=== PATIENT | female | born 1940 | race Caucasian/White ===

== ENCOUNTER 2022-10-20 22:08 | Inpatient (IN) | payer MEDICARE, OTHER, SELFPAY ==
--- NOTE | 2022-10-20 22:16 | W.ED.AMS ---
Documented by User: TAHMINA Elias 10/21/22 02:59 HPI - Altered Mental Status General: Chief Complaint: Altered Mental Status Stated Complaint: Alzheimer's Time Seen by Provider: 10/20/22 22:15 History of Present Illness: Patient is an 82-year-old female comes to the ED via EMS with Alzheimer's. Patient is in no distress and denies any symptoms at this time. Patient is a poor historian. She knows that she has a and lives with him. Patient does not remember if she has any kids or where she lives. The rest of the history below was provided by EMS. Patient lives at home with her and her takes care of her. The police just arrested and took him into custody. Patient cannot be left at home alone because she cannot take care of herself. The police hotline patient and they told police to bring patient here to the ED. police tried to get a hold of family that live in [place] and they are estranged from them and will not help. Review of Systems Const: Denies: fever(s), chills or fatigue Eyes: Denies: change in vision or eye discomfort ENMT: Denies: throat pain, odynophagia, nasal discharge or nasal congestion Card: Denies: chest pain, palpitations, edema, swelling of feet/ankles, dyspnea on exertion or orthopnea Resp: Denies: dyspnea, productive cough or non-productive cough GI: Denies: abdominal pain, nausea, vomiting, diarrhea, constipation or hematochezia : Denies: flank pain, dysuria or hematuria Musc: Denies: neck pain, back pain or extremity swelling Skin/Breast: Denies: rash or new lesions Neuro: Reports: other (Alzheimer's dementia); Denies: headache(s), numbness in extremities or weakness in extremities PFS ED PFSH: Medical History Alzheimers disease Unknown family medical history Physical Exam Const: COMMON NORMALS: no acute distress and alert EXAM LIMITATIONS: altered mental status (Alzheimer's dementia) ORIENTATION/CONSCIOUSNESS: Yes oriented to person; not oriented to place and not oriented to time HENMT: HEAD & SCALP: normal to inspection Eye: GENERAL EYE: appearance normal, both eyes and all related structures Resp: COMMON NORMALS: normal respiratory effort and clear to auscultation bilaterally AUSCULTATION: clear to auscultation bilaterally Cardio: COMMON NORMALS: regular rate, S1 normal heart sound present, S2 normal heart sound present and Peripheral pulses 2+ throughout RATE: regular rate HEART SOUNDS: S1 normal heart sound present and S2 normal heart sound present PERIPHERAL PULSES: Peripheral pulses 2+ throughout GI: COMMON NORMALS: Normal to inspection, nondistended, normoactive bowel sounds present and non-tender : OTHER: Patient does smell like urine. Extremity: COMMON NORMALS: normal to inspection Neuro: SENSORIUM/ORIENTATION: Yes alert, Yes oriented to person, No oriented to place, No oriented to time and Yes Orientation impaired (Patient is oriented to person but not place or time.) OTHER: Patient was unable to answer question of where she has had currently and where she lives. She does not know how long she has been to her and does not know if she has had any kids. Skin: GENERAL SKIN EXAM: dry skin Course Vital Signs: Vital signs: Vital Signs Temperature 98.8 F 10/20/22 22:17 Pulse Rate 54 L 10/20/22 22:17 Respiratory Rate 16 10/20/22 22:17 Blood Pressure 127/70 10/20/22 22:17 Pulse Oximetry 99 10/20/22 22:17 Oxygen Delivery Me thod 10/20/22 22:17 MDM - Altered Mental Status Medical Decision Making Patient is an 82-year-old female comes to the ED via EMS with Alzheimer's. Patient is a poor historian due to Alzheimer's dementia. Patient lives at home and her takes care of her. Police just arrested tonight and he will not be out of custody for a while. The police called hotline for patient and they told them to bring patient here to the ED. She has no close family to help take care of her. Vitals are stable. Patient sitting comfortably on exam bed and does not appear in any distress. Patient is aware that she has a and lives with him but does not know if she has any kids or where she is at. CBC was unremarkable. Creatinine of 1.1 but unsure of patient's baseline since her drive any history on patient. Rest of labs were unremarkable. Head CT showed no acute findings. I discussed patient case with Dr. Balderrama and patient will be a social admit to hospital given her Alzheimer's dementia and current situation, having no family or wholesale buyer available. Dr. Balderrama called hospitalist and patient was admitted. Lab Data I reviewed the patient's lab results. 10/20/22 00:36 10/20/22 00:[address] 10/20/22 22:29 IMPRESSION: 1. No acute intracranial abnormality. 2. Small left frontal scalp hematoma. Laboratory Results WBC 6.8 10^3/uL (4.0-10.0) 10/21/22 00:36 Corrected WBC Cancelled 10/20/22 00:36 RBC 4.09 10^6/uL (4.1-5.3) L 10/21/22 00:36 Hgb 12.5 g/dL (11.5-15.3) 10/21/22 00:36 Hct 40.0 % (37.0-47.0) 10/21/22 00:36 MCV 97.8 fl (81-99) 10/21/22 00:36 MCH 30.6 pg (28.0-34.0) 10/21/22 00:36 MCHC 31.3 g/dL (30.0-36.0) 10/21/22 00:36 RDW 15.1 % (12.1-15.1) 10/21/22 00:36 Plt Count 268 10^3/cmm (130-400) 10/21/22 00:36 MPV 9.1 fL (7.4-10.4) 10/21/22 00:36 Gran % Cancelled 10/20/22 00:36 Neut % (Auto) 63.8 % 10/21/22 00:36 Lymph % (Auto) 22.0 % 10/21/22 00:36 [place] % (Auto) 10.8 % 10/21/22 00:36 Eos % (Auto) 1.8 % 10/21/22 00:36 Baso % (Auto) 0.7 % 10/21/22 00:36 Neut # (Auto) 4.31 10^3/uL (1.8-7.7) 10/21/22 00:36 Lymph # (Auto) 1.5 10^3/uL (0.8-4.8) 10/21/22 00:36 [place] # (Auto) 0.7 10^3/uL (0.2-0.9) 10/21/22 00:36 Eos # (Auto) 0.1 10^3/uL (0.0-0.8) 10/21/22 00:36 Baso # (Auto) 0.1 10^3/uL (0.0-0.1) 10/21/22 00:36 Absolute Gran (auto) Cancelled 10/20/22 00:36 Nucleated RBC % (auto) 0 % 10/21/22 00:36 Nucleated RBCs # 0.0 /100WBC 10/21/22 00:36 Sodium 138 mmol/L (136-145) 10/21/22 00:36 Potassium 3.5 mmol/L (3.5-5.1) 10/21/22 00:36 Chloride 103 mmol/L (98-107) 10/21/22 00:36 Carbon Dioxide 27 mmol/L (22-29) 10/21/22 00:36 Anion Gap 11.5 (5-19) 10/21/22 00:36 BUN 19 mg/dL (8-23) 10/21/22 00:36 Creatinine 1.1 mg/dL (0.5-0.9) H 10/21/22 00:36 GFR Calculation Not Reportable 10/21/22 00:36 Glucose 102 mg/dL (65-115) 10/21/22 00:36 Calculated Osmolality 288 mOsm/kg (285-295) 10/21/22 00:36 Calcium 8.8 mg/dL (8.5-10.5) 10/21/22 00:36 Total Bilirubin 0.2 mg/dL (0.15-1.2) 10/21/22 00:36 AST 25 U/L (0-32) 10/21/22 00:36 ALT 19 U/L (0-33) 10/21/22 00:36 Alkaline Phosphatase 118 U/L (35-105) H 10/21/22 00:36 Total Protein 6.5 g/dL (6.6-8.7) L 10/21/22 00:36 Albumin 3.7 g/dL (3.5-5.2) 10/21/22 00:36 Globulin 2.8 g/dL (1.3-4.6) 10/21/22 00:36 Discharge Plan Discharge Patient Disposition: Admitted As Inpatient Admit Provider: Steven Ruiz Clinical Impression: Alzheimer's dementia Condition: Stable Coding Level of Care Code ED Roller Turner for Sariah Fwnicole Documented by User: Shameka Balderrama MD 10/21/22 03:14 HPI - Altered Mental Status General: Chief Complaint: Altered Mental Status Stated Complaint: Alzheimer's Time Seen by Provider: 10/20/22 22:15 [facility] ED PFSH: Medical History Alzheimers disease Unknown family medical history Course Vital Signs: Vital signs: Vital Signs Temperature 98.8 F 10/20/22 22:17 Pulse Rate 54 L 10/20/22 22:17 Respiratory Rate 16 10/20/22 22:17 Blood Pressure 127/70 10/20/22 22:17 Pulse Oximetry 99 10/20/22 22:17 Oxygen Delivery Me thod 10/20/22 22:17 MDM - Altered Mental Status Medical Decision Making Patient is an 82-year-old female comes to the ED via EMS with Alzheimer's. Patient is a poor historian due to Alzheimer's dementia. Patient lives at home and her takes care of her. Police just arrested tonight and he will not be out of custody for a while. The police called hotline for patient and they told them to bring patient here to the ED. She has no close family to help take care of her. Vitals are stable. Patient sitting comfortably on exam bed and does not appear in any distress. Patient is aware that she has a and lives with him but does not know if she has any kids or where she is at. CBC was unremarkable. Creatinine of 1.1 but unsure of patient's baseline since her drive any history on patient. Rest of labs were unremarkable. Head CT showed no acute findings. I discussed patient case with Dr. Balderrama and patient will be a social admit to hospital given her Alzheimer's dementia and current situation, having no family or wholesale buyer available. Dr. Balderrama called hospitalist and patient was admitted. Patient presents here after her was arrested for drunk driving multiple attempts been made to try to get family to come to get her but has been able to get anyone to and she has no one living local her is currently in [facility] and is likely to be in [facility] for days spoke to hospitalist will admit at this time she is severely demented and is not able to take care of her self. Lab Data 10/20/22 00:36 10/20/22 00:[address] 10/20/22 22:29 IMPRESSION: 1. No acute intracranial abnormality. 2. Small left frontal scalp hematoma. Laboratory Results WBC 6.8 10^3/uL (4.0-10.0) 10/21/22 00:36 Corrected WBC Cancelled 10/20/22 00:36 RBC 4.09 10^6/uL (4.1-5.3) L 10/21/22 00:36 Hgb 12.5 g/dL (11.5-15.3) 10/21/22 00:36 Hct 40.0 % (37.0-47.0) 10/21/22 00:36 MCV 97.8 fl (81-99) 10/21/22 00:36 MCH 30.6 pg (28.0-34.0) 10/21/22 00:36 MCHC 31.3 g/dL (30.0-36.0) 10/21/22 00:36 RDW 15.1 % (12.1-15.1) 10/21/22 00:36 Plt Count 268 10^3/cmm (130-400) 10/21/22 00:36 MPV 9.1 fL (7.4-10.4) 10/21/22 00:36 Gran % Cancelled 10/20/22 00:36 Neut % (Auto) 63.8 % 10/21/22 00:36 Lymph % (Auto) 22.0 % 10/21/22 00:36 [place] % (Auto) 10.8 % 10/21/22 00:36 Eos % (Auto) 1.8 % 10/21/22 00:36 Baso % (Auto) 0.7 % 10/21/22 00:36 Neut # (Auto) 4.31 10^3/uL (1.8-7.7) 10/21/22 00:36 Lymph # (Auto) 1.5 10^3/uL (0.8-4.8) 10/21/22 00:36 [place] # (Auto) 0.7 10^3/uL (0.2-0.9) 10/21/22 00:36 Eos # (Auto) 0.1 10^3/uL (0.0-0.8) 10/21/22 00:36 Baso # (Auto) 0.1 10^3/uL (0.0-0.1) 10/21/22 00:36 Absolute Gran (auto) Cancelled 10/20/22 00:36 Nucleated RBC % (auto) 0 % 10/21/22 00:36 Nucleated RBCs # 0.0 /100WBC 10/21/22 00:36 Sodium 138 mmol/L (136-145) 10/21/22 00:36 Potassium 3.5 mmol/L (3.5-5.1) 10/21/22 00:36 Chloride 103 mmol/L (98-107) 10/21/22 00:36 Carbon Dioxide 27 mmol/L (22-29) 10/21/22 00:36 Anion Gap 11.5 (5-19) 10/21/22 00:36 BUN 19 mg/dL (8-23) 10/21/22 00:36 Creatinine 1.1 mg/dL (0.5-0.9) H 10/21/22 00:36 GFR Calculation Not Reportable 10/21/22 00:36 Glucose 102 mg/dL (65-115) 10/21/22 00:36 Calculated Osmolality 288 mOsm/kg (285-295) 10/21/22 00:36 Calcium 8.8 mg/dL (8.5-10.5) 10/21/22 00:36 Total Bilirubin 0.2 mg/dL (0.15-1.2) 10/21/22 00:36 AST 25 U/L (0-32) 10/21/22 00:36 ALT 19 U/L (0-33) 10/21/22 00:36 Alkaline Phosphatase 118 U/L (35-105) H 10/21/22 00:36 Total Protein 6.5 g/dL (6.6-8.7) L 10/21/22 00:36 Albumin 3.7 g/dL (3.5-5.2) 10/21/22 00:36 Globulin 2.8 g/dL (1.3-4.6) 10/21/22 00:36 Discharge Plan Discharge Patient Disposition: Admitted As Inpatient Admit Provider: Steven Ruiz Clinical Impression: Alzheimer's dementia Condition: Stable Coding Level of Care Code ED Roller Turner for Sariah Simon
[2022-10-20 22:17] VITALS: BP 127/70; PULSE 54; RESP 16; TEMP 37.1; O2SAT 99
--- NOTE | 2022-10-20 22:29 | CTR_ITS ---
PROCEDURE INFORMATION: Exam: CT Head Without Contrast Exam date and time: 10/20/2022 10:48 PM Age: 82 years old Clinical indication: Altered mental status/memory loss; Confusion or disorientation; Patient HX: Brought via EMS from home for confusion. History of alzheimer's TECHNIQUE: Imaging protocol: Computed tomography of the head without contrast. Radiation optimization: All CT scans at this facility use at least one of these dose optimization techniques: automated exposure control; mA and/or kV adjustment per patient size (includes targeted exams where dose is matched to clinical indication); or iterative reconstruction. REPORTING DATA: Count of CT and Cardiac NM exams in prior 12 months: This patient has received 0 known CTs and 0 known cardiac nuclear medicine studies in the 12 months prior to the current study. COMPARISON: No relevant prior studies available. RADIATION DOSE METRICS: Total DLP (mGy-cm): 1052.48 FINDINGS: Brain: Moderate diffuse cortical volume loss. Moderate hypodensities in supratentorial periventricular and subcortical white matter, consistent with microangiopathy. No intracranial hemorrhage. Cerebral ventricles: No ventriculomegaly. Paranasal sinuses: Visualized sinuses are unremarkable. No fluid levels. Mastoid air cells: Visualized mastoid air cells are well aerated. Orbital cavities: Prior cataract surgery. Bones/joints: Unremarkable. No acute fracture. Soft tissues: Small left frontal scalp hematoma. Vasculature: No hyperdense artery. CT/CT head wo con* [id number] IMPRESSION: 1. No acute intracranial abnormality. 2. Small left frontal scalp hematoma.
[2022-10-21] VITALS (7 sets, daily range): BP systolic 135–167; BP diastolic 76–82; PULSE 50–92; RESP 16–19; TEMP 36.4–36.8; O2SAT 90–100
[2022-10-21 02:44] LABS: Alanine Aminotransferase 19 U/L (0-33); Albumin Level 3.7 g/dL (3.5-5.2); Alkaline Phosphatase 118 U/L (35-105); Anion Gap 11.5 (5-19); Aspartate Amino Transferase 25 U/L (0-32); Basophils # 0.1 10^3/uL (0.0-0.1); Basophils % 0.7 %; Blood Urea Nitrogen 19 mg/dL (8-23); Calcium 8.8 mg/dL (8.5-10.5); Carbon Dioxide 27 mmol/L (22-29); Chloride 103 mmol/L (98-107); Eosinophils # 0.1 10^3/uL (0.0-0.8); Eosinophils % 1.8 %; Globulin 2.8 g/dL (1.3-4.6); Glucose 102 mg/dL (65-115); Hemoglobin 12.5 g/dL (11.5-15.3); Lymphocytes # 1.5 10^3/uL (0.8-4.8); Mean Corpuscular HGB Conc 31.3 g/dL (30.0-36.0); Mean Corpuscular Hemoglobin 30.6 pg (28.0-34.0); Mean Corpuscular Volume 97.8 fl (81-99); Mean Platelet Volume 9.1 fL (7.4-10.4); Monocytes # 0.7 10^3/uL (0.2-0.9); Monocytes % 10.8 %; Neutrophils # 4.31 10^3/uL (1.8-7.7); Neutrophils % 63.8 %; Nucleated Red Blood Cells % 0 %; Osmolality Calculated 288 mOsm/kg (285-295); Platelet Count 268 10^3/cmm (130-400); Potassium 3.5 mmol/L (3.5-5.1); Red Blood Count 4.09 10^6/uL (4.1-5.3); Red Cell Distribution Width 15.1 % (12.1-15.1); Sodium 138 mmol/L (136-145); Total Bilirubin 0.2 mg/dL (0.15-1.2); Total Protein 6.5 g/dL (6.6-8.7); White Blood Count 6.8 10^3/uL (4.0-10.0)
--- NOTE | 2022-10-21 04:23 | PC.NURSE ---
Pt arrived to 259-1, pt is sitting on the side of the bed. She is obstinate and refuses to answer questions, just states no. Hx of alzheimers dementia. Bed alarm placed, and elopement precautions in place.
--- NOTE | 2022-10-21 06:26 | P.HP_ITS ---
Providers/Chief Complaint Admitting Physician: Steven Ruiz MD Primary Care Provider: Roosevelt Palacios MD Chief Complaint: Alzheimer's History of Present Illness No history available. Most of the history taken through conversation through ER physician and chart review. Elenita Polk is a 82 year old female with history of advanced dementia whose is the primary caregive, past history of Graves' disease, hypothyroidism, GERD. She was brought into the hospital today by the assistant clinical nurse manager as who is her primary caregiver was arrested for DUI. She was brought into the ER as she cannot be left alone at home. Hotlined the Patient and They Were Asked to Get the Patient to the ER for Further Care. Patient Does Not Have Any Family around to Help. On Examination Patient Sitting Comfortably in Chair without Any Acute Difficulty. Does Have Occasional Episodes of Combativeness. Blood Work Done in the ER Showed a White Count 6.8, Hemoglobin of 12.5, Creatinine of 1.1, Sodium 138, a Alkaline Phosphatase of 118. Review of Systems General: Reports: ROS unobtainable due to medical condition and ROS unobtainable due to mental status Medications/Allergies Allergies Allergy/AdvReac Type Severity Reaction Status Date / Time Unable to Assess Allergy Unverified 10/21/22 04:27 PFSH Acute PFSH: Medical History (Updated 10/21/22 @ 06:32 by Steven Ruiz MD) Alzheimers disease Graves disease Hypothyroidism Unknown family medical history Surgical History (Updated 10/21/22 @ 06:31 by Steven Ruiz MD) Surgical history unknown Social History (Updated 10/21/22 @ 06:31 by Steven Ruiz MD) Smoking and tobacco status: unknown if ever smoked Caregiver/support person: Yes Lives independently: Yes Household members: spouse Housing: House Marital status: Vitals/I&O/Wt Last Vital Signs Temp 98.0 F 10/21/22 04:00 Pulse 60 10/21/22 04:00 Resp 19 H 10/21/22 04:00 BP 143/80 10/21/22 04:00 Pulse Ox 98 10/21/22 04:00 O2 Del Method 10/21/22 04:11 Weight last 48 hrs Weight 57.153 kg Physical Exam Narrative: General: No acute distress, AO x1, patient with episode of confusion and combativeness HEENT: PERRLA, pupils bilaterally equal and reactive Chest: Normal vesicular breath sounds, no added sounds, equal good air entry bilaterally CVS: S1-S2 regular, no murmurs, no tachycardia, no gallops, no rubs Abdomen: Soft, nontender, no organomegaly, bowel sounds present Neuro: No focal deficits, no facial deformity, moving all limbs, wandering in t he clay Data 10/21/22 00:36 10/21/22 00:36 A&P Assessment and plan (1) No able caregiver in household: (2) Alzheimer's dementia: Qualifiers: Alzheimer's disease onset: unspecified onset Dementia behavioral or psychological symptom: unspecified whether behavioral, psychotic, or mood disturbance or anxiety Dementia severity: unspecified severity Qualified Code(s): G30.9 - Alzheimer's disease, unspecified; F02.80 - Dementia in other diseases classified elsewhere, unspecified severity, without behavioral disturbance, psychotic disturbance, mood disturbance, and anxiety (3) Hypothyroidism: (4) Kidney dysfunction: Do not have baseline creatinine. Could be elevated because of dehydration. Gentle IV hydration for 1 L. Monitor BMP daily. Plan 82-year-old female with past medical history of advanced dementia whose of the primary caregiver and was just arrested by the assistant clinical nurse manager for DUI was brought into the hospital today as she does not have any caregiver at home and it is unsafe for her to be alone at home. When hotlined, the patient she was asked to brought to the hospital When possible will do medical reconciliation. Check TSH, iron panel, vitamin B12, folate level. For now start on Celexa, donepezil, risperidone 0.5 mg twice daily with Haldol 1 mg IM every 4 hours as needed for agitation. Sitter at bedside. Fall precaution. Regular diet. Normal saline at 75 cc/h for 1 bag. Case management consult for possible placement. Attestations Medical Necessity Statement*: Admission for more than 2 midnights for a pat ient with advanced dementia who does not have a primary care provider currently at home as he was arrested and it is unsafe for patient to live by herself while safe discharge planning is sought. and Moderate Time for a total of 60 minutes, includes reviewing past or interval history, examining/interviewing patient, placing orders, discussing plan of care with staff, communicating with other healthcare providers, documenting encounter and coordinating care Diagnoses No able caregiver in household Z74.2 Alzheimer's dementia G30.9; F02.80 Alzheimer's disease onset: unspecified onset Dementia behavioral or psychological symptom: unspecified whether behavioral, psychotic, or mood disturbance or anxiety Dementia severity: unspecified severity Hypothyroidism E03.9 Kidney dysfunction N28.9
[2022-10-21 07:19] LABS: Folate Level 6.3 ng/mL (4.8-37.3)
[2022-10-21 07:20] LABS: Procalcitonin 0.04 ng/mL (0-0.5); Vitamin B12 240 pg/mL (232-1245)
[2022-10-21 07:33] LABS: Iron 70 ug/dL (37-145); Percent Saturation 22.9 % (20-50); Total Iron Binding Capacity 305 mcg/dl; Unsaturated Iron Binding 235 ug/dL (112-347)
--- NOTE | 2022-10-21 09:12 | PC.PHAR ---
pt unable to verify medications-ozzie deliotabithaadolfo last filled lexapro 5mg daily 07/17/23 30d/s with refills-quetiapine 25mg take 12.5mg daily as needed for agitation filled 07/17/22 30d/s with refills-ozzie last filled levothyroxine 175mcg daily on 05/16/22 90d/s no refills
--- NOTE | 2022-10-21 09:29 | PC.CHAP ---
Pastoral Care Encounter/Spiritual Assessment Type of Contact [] Declined college of [employer] dean visit [] Patient/Family/Request visit [] Outpatient visit [] Follow-up visit [] Physician referral [] Code/Alert [x] Routine visit [] Staff referral [] Actively dying [] Patient sleeping [] Family support [] [] Out of room [] Palliative care [] [x] Receiving care in room [] Pre-surgical visit [] Trauma [] Long length of stay [] ICU visit [] Other: Relational/Emotional Strength [] Patient feels connected with others/family/visitors/staff [] Distress [] Loneliness/isolation [] Abandonment Spirituality of Patient [] Person of Rika [] Attends Islam of their Rika [] Believes in Prayer [] Reads Bible or Denominational materials [] There are Spiritual issues to be addressed Vice President Mission Integration Interventions [] Prayer [] Active listening [] Non-anxious presence [] Spiritual/emotional support [] Crisis/trauma care [] Spiritual counseling [] Bereavement support [] Provided bereavement packet [] Provided Bible/devotional materials [] Provided toy/stuffed animal, coloring book to patient or family member [] Provided Communion [] Anointing/[place] [] Salvation [] Completed spiritual assessment [] Other: Impact on Illness or Injury [] Angry [] Fearful [] Anxious [] Often cries [] Exhaustion [] Unable to work [] Unable to attend mosque [] Unable to walk/stand [] Unable to read [] Unable to drive [] Unable to eat/drink [] Unable to sleep [] Unable to be with family [] Patient intubated [] Other: Summary Time spent with patient
[2022-10-21 10:33] LABS: Free T4 Free Thyroxine 0.18 ng/dL (0.82-1.77); T3 Free 0.5 PG/ML (2.0-4.4)
[2022-10-21 10:39] LABS: Creatine Phosphokinase 422 U/L (26-192)
[2022-10-21] MEDS: LORazepam 2 mg/mL INJ 1 mL 1 MG IM (12:03)
[2022-10-21] MEDS: diphenhydrAMINE 50 mg/mL SDV 1mL 25 MG IM (12:03)
[2022-10-21] MEDS: haloperidol inj 5 mg/mL INJ 1 mL 2 MG IM (12:04)
[2022-10-21] MEDS: sodium chloride 0.9% 1,000 ML 75 ML IV (13:52)
[2022-10-21] MEDS: levothyroxine 100 mcg SDV 75 MCG IVP (13:55)
--- NOTE | 2022-10-21 17:12 | P.PN_ITS ---
Subjective Medications: Medication Review Details: - Patient was examined multiple times throughout the day, with a meeting with her at bedside in the afternoon -Patient has Alzheimer's dementia, admitted because she does not have care at home as her is currently in long-term -Patient was seen wandering the hallways alert to person, not to place, not to time becoming very agitated, at times swearing, at times banging on the hendricks, she becomes very agitated when I just talk with her, at times she is swearing, and she continues to walk the hallways -Nursing staff are walking with her around the hallways, -As I was concerned for the safety of staff, safety of the patient's, I had nursing staff in security slowly melchor her back to her room -We were able to get her to calm down, nursing staff are able to give her into bed -She was given Ativan, Haldol, Benadryl -Since then she has been resting comfortably -Review of her blood work shows that her TSH is over 150, 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 she does have Alzheimer's dementia but I am not sure with her baseline mental status, given her acute worsening of her mentation and encephalopathy 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 -Patient was reexamined in the afternoon, she is resting comfortably, she does awaken but falls back asleep likely secondary to sedating medication she has received - is at bedside, he tells me that at home she has dementia and has been trying to get her to go to a senior care, but he wanted to make that decision in October -She can ambulate on her own, but she requires assistance of activities of daily living totally from him, -He tries to get her meds, but sometimes she does not take her medications - does tell me that her memory has declined recently, she has been a bit more agitated even with him, -He is not sure if she is taking her thyroid medication he is not sure the dose left to call pharmacy -Discussed with him in detail the morbidity and mortality of myxedema coma she does have Alzheimer dementia so not sure if her current agitation is from her underlying Alzheimer's dementia or it could be the myxedema -But given her confusion, her agitation we will have to 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 for myxedema coma given morbidity and mortality associated with myxedema -Discussed GHASSAN kathie we will give her fluids monitor her TSH -She might continue to have episodes of agitation and confusion specially during the night, which I am worried, she might require more sedating medications but will monitor Vitals/I&O/Wt Last Vital Signs Temp 98.0 F 10/21/22 16:00 Pulse 50 L 10/21/22 16:00 Resp 16 10/21/22 16:00 BP 135/76 10/21/22 16:00 Pulse Ox 99 10/21/22 16:00 O2 Del Method 10/21/22 16:00 10/21/22 10/21/22 10/21/22 06:59 14:59 22:59 Intake Total 120 / 120 240 / 240 Balance 120 / 120 240 / 240 Weight last 48 hrs Weight 57.153 kg Physical Exam Const: EXAM LIMITATIONS: altered mental status ORIENTATION/CONSCIOUSNESS: Yes awake, Yes oriented to person and Yes confused; not oriented to place and not oriented to time Resp: COMMON NORMALS: normal respiratory effort, No retractions, No use of accessory muscles and clear to auscultation bilaterally AUSCULTATION: clear to auscultation bilaterally Cardio: COMMON NORMALS: regular rate, regular rhythm, S1 normal heart sound present and S2 normal heart sound present RATE: regular rate RHYTHM: regular rhythm HEART SOUNDS: S1 normal heart sound present and S2 normal heart sound present GI: COMMON NORMALS: Normal to inspection, nondistended, normoactive bowel sounds present and non-tender Neuro: SENSORIUM/ORIENTATION: Yes oriented to person, No oriented to place and No oriented to time Psych: OTHER: Becomes very agitated, currently resting comfortably after sedation Data 10/21/22 00:36 10/21/22 00:36 A&P Assessment and plan (1) Acute encephalopathy: (2) Myxedema coma: (3) Rhabdomyolysis: (4) Acute kidney injury: Plan Acute encephalopathy -Likely secondary to underlying dementia -However given elevated TSH, could be a component of myxedema coma -Neurochecks, aspiration precautions, night stroke scale -Monitor vitals closely Myxedema coma -She is too sedated to do Cytomel but will try -We do not have IV Cytomel -75 mcg IV levothyroxine -Recheck TSH in the afternoon, if still admitted we will give another 75 -Telemetry monitoring -Continuous pulse ox Rhabdomyolysis, IV fluids GHASSAN, IV fluids Obtain UA, obtain blood cultures, troponin series CT of the head Brain: Moderate diffuse cortical volume loss. Moderate hypodensities in supratentorial periventricular and subcortical white matter, consistent with microangiopathy. No intracranial hemorrhage. Cerebral ventricles: No ventriculomegaly. Paranasal sinuses: Visualized sinuses are unremarkable. No fluid levels. Mastoid air cells: Visualized mastoid air cells are well aerated. 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
[2022-10-21] MEDS: ferrous gluconate 324 mg Tablet PO (17:30)
[2022-10-21] MEDS: docusate sodium 100 mg Capsule PO (17:30)
[2022-10-21] MEDS: risperiDONE 0.25 mg Tablet 0.5 MG PO (17:30)
--- NOTE | 2022-10-21 17:38 | ECG_ITS ---
[facility] Test Date: 2022-10-21 Pat Name: Elenita Polk Department: Room: 259 Gender: Female Trim Machine Operator: : 1940 Requested By: Stefano Wynn Order Number: [id number] Hugo MD: Ramirez Moralez M.D. Measurements Intervals [place] Rate: 53 P: 60 PA: 178 QRS: -30 QRSD: 82 T: 32 QT: 417 QTc: 393 Interpretive Statements SINUS BRADYCARDIA BORDERLINE LEFT AXIS DEVIATION [QRS AXIS < -20] No previous ECG available for comparison Electronically Signed On 10-21-2022 18:07:53 VISUAL PRESENTATION MANAGER by Ramirez Moralez M.D. [email or web address] [id number]
[2022-10-21] MEDS: cefTRIAXone 1,000 MG in sodium chloride 0.9% (plus) 50 ML 100 MG IV (18:16)
[2022-10-21 19:15] LABS: Troponin(5th) Baseline 69 ng/L (0-10)
--- NOTE | 2022-10-21 19:15 | ECG_ITS ---
[facility] Test Date: 2022-10-21 Pat Name: Elenita Polk Department: Room: 259 Gender: Female Family Helper: : 1940 Requested By: Stefano Wynn Order Number: [id number] Hugo MD: Ramirez Moralez M.D. Measurements Intervals [place] Rate: 51 P: 81 [place]: 168 QRS: -22 QRSD: 84 T: 37 QT: 428 QTc: 396 Interpretive Statements SINUS BRADYCARDIA BORDERLINE LEFT AXIS DEVIATION [QRS AXIS < -20] Compared to ECG 10/21/2022 17:38:35 No significant changes Electronically Signed On 10-21-2022 22:51:20 PADDED PRODUCTS FINISHER by Ramirez Moralez M.D. [id number]
[2022-10-21] MEDS: donepezil 5 MG Tablet 10 MG PO (21:23)
[2022-10-21 22:20] LABS: Troponin 5 2HR 69.64 ng/L (0-10)
[2022-10-21 22:25] LABS: Troponin 5 2HR Delta 0.64 ABS# (0-10)
--- NOTE | 2022-10-21 23:15 | ECG_ITS ---
[facility] Test Date: 2022-10-21 Pat Name: Elenita Polk Department: Room: 259 Gender: Female Forensic Pathologist: : 1940 Requested By: Stefano Wynn Order Number: [id number] Hugo MD: Gissel Pena M.D. Measurements Intervals [place] Rate: 60 P: 91 [place]: 164 QRS: -34 QRSD: 86 T: -72 QT: 392 QTc: 392 Interpretive Statements SINUS RHYTHM WITH OCCASIONAL SUPRAVENTRICULAR PREMATURE COMPLEXES LEFT AXIS DEVIATION [QRS AXIS < -30] MODERATE ST DEPRESSION [0.05+ mV ST DEPRESSION] Compared to ECG 10/21/2022 21:17:41 ST (T wave) deviation now present Sinus bradycardia no longer present Electronically Signed On 10-22-2022 22:27:26 FIELD ADMINISTRATIVE ASSISTANT by Gissel Pena M.D. [id number]
[2022-10-22 00:33] LABS: Troponin 5 6HR 68.57 ng/L (0-10)
[2022-10-22 00:41] LABS: Troponin 5 6HR Delta -0.43 ng/L (0-12)
[2022-10-22 04:00] VITALS: BP 145/85; PULSE 67; RESP 17; TEMP 36.4; O2SAT 95
[2022-10-22 05:05] LABS: Basophils # 0.1 10^3/uL (0.0-0.1); Basophils % 0.5 %; Eosinophils # 0.2 10^3/uL (0.0-0.8); Eosinophils % 1.6 %; Hematocrit 40.5 % (37.0-47.0); Hemoglobin 12.7 g/dL (11.5-15.3); Lymphocytes # 0.8 10^3/uL (0.8-4.8); Lymphocytes % 7.5 %; Mean Corpuscular HGB Conc 31.4 g/dL (30.0-36.0); Mean Corpuscular Hemoglobin 30.7 pg (28.0-34.0); Mean Corpuscular Volume 97.8 fl (81-99); Mean Platelet Volume 8.9 fL (7.4-10.4); Monocytes # 0.7 10^3/uL (0.2-0.9); Monocytes % 6.5 %; Neutrophils # 8.61 10^3/uL (1.8-7.7); Neutrophils % 83.3 %; Nucleated Red Blood Cells % 0 %; Platelet Count 244 10^3/cmm (130-400); Red Blood Count 4.14 10^6/uL (4.1-5.3); White Blood Count 10.3 10^3/uL (4.0-10.0)
[2022-10-22 05:36] LABS: Alanine Aminotransferase 14 U/L (0-33); Albumin Level 3.2 g/dL (3.5-5.2); Alkaline Phosphatase 109 U/L (35-105); Anion Gap 12.2 (5-19); Aspartate Amino Transferase 30 U/L (0-32); Blood Urea Nitrogen 12 mg/dL (8-23); Calcium 8.8 mg/dL (8.5-10.5); Carbon Dioxide 27 mmol/L (22-29); Chloride 108 mmol/L (98-107); Chol HDL Ratio 3.06 mg/dL (0.0-4.40); Cholesterol 236 mg/dL (0-200); Estmated Average Glucose 97; Free T4 Free Thyroxine 0.21 ng/dL (0.82-1.77); Globulin 2.7 g/dL (1.3-4.6); Glucose 113 mg/dL (65-115); HDL Cholesterol 77 mg/dL (60-100); LDL Cholesterol Calculated 138 mg/dL (50-129); Osmolality Calculated 297 mOsm/kg (285-295); Potassium 4.2 mmol/L (3.5-5.1); Sodium 143 mmol/L (136-145); T3 Free 0.6 PG/ML (2.0-4.4); Total Bilirubin 0.2 mg/dL (0.15-1.2); Total Protein 5.9 g/dL (6.6-8.7); Triglycerides 107 mg/dL (0-150); VLDL Cholestrol Calculation 21 mg/dL (0-30)
[2022-10-22 08:00] VITALS: PULSE 83; O2SAT 93
[2022-10-22 08:29] LABS: Creatine Phosphokinase 663 U/L (26-192)
[2022-10-22] MEDS: levothyroxine 100 mcg SDV IVP (09:52)
--- NOTE | 2022-10-22 10:42 | PM.PN ---
Subjective Subjective: Patient was seen this morning, she is resting comfortably does awaken, but falls back asleep, no episodes of agitation overnight, Vitals/I&O/Wt Last Vital Signs Temp 97.6 F 10/22/22 04:00 Pulse 67 10/22/22 04:00 Resp 17 10/22/22 04:00 BP 145/85 10/22/22 04:00 Pulse Ox 95 10/22/22 04:00 O2 Del Method 10/21/22 23:29 10/21/22 10/22/22 10/22/22 22:59 06:59 14:59 Intake Total 410 / 650 1000 / 1650 Output Total 700 / 700 Balance -290 / -50 1000 / 950 Weight last 48 hrs Weight 60.963 kg Weight 57.153 kg Physical Exam Const: COMMON NORMALS: no acute distress Resp: COMMON NORMALS: normal respiratory effort, No retractions, No use of accessory muscles and clear to auscultation bilaterally AUSCULTATION: clear to auscultation bilaterally Cardio: COMMON NORMALS: regular rate, regular rhythm, S1 normal heart sound present and S2 normal heart sound present RATE: regular rate RHYTHM: regular rhythm HEART SOUNDS: S1 normal heart sound present and S2 normal heart sound present GI: COMMON NORMALS: Normal to inspection, nondistended, normoactive bowel sounds present and non-tender Psych: COMMON NORMALS: mental status grossly normal Data 10/22/22 04:48 10/22/22 04:48 Micro: Microbiology 10/21/22 18:21 Blood Culture - Preliminary Blood SPECIMEN COLLECTED 10/21/22 18:26 Blood Culture - Preliminary Blood SPECIMEN COLLECTED A&P Assessment and plan (1) Acute encephalopathy: (2) Myxedema coma: (3) Rhabdomyolysis: (4) Acute kidney injury: (5) NSTEMI (non-ST elevated myocardial infarction): Plan Acute encephalopathy -Likely secondary to underlying dementia -However given elevated TSH, could be a component of myxedema coma -Neurochecks, aspiration precautions, night stroke scale -Monitor vitals closely Myxedema coma -TSH still 157, free T40.21, free T30.6 -She is too sedated to do Cytomel but will try -We do not have IV Cytomel -100mcg IV levothyroxine -Telemetry monitoring -Continuous pulse ox NSTEMI, likely type II NSTEMI supply demand ischemia from myxedema coma encephalopathy, monitor Rhabdomyolysis, IV fluids GHASSAN, IV fluids Obtain UA, obtain blood cultures, troponin series CT of the head Brain: Moderate diffuse cortical volume loss. Moderate hypodensities in supratentorial periventricular and subcortical white matter, consistent with microangiopathy. No intracranial hemorrhage. Cerebral ventricles: No ventriculomegaly. Paranasal sinuses: Visualized sinuses are unremarkable. No fluid levels. Mastoid air cells: Visualized mastoid air cells are well aerated. 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
[2022-10-22] MEDS: multivitamin therapeutic Tablet 1 TAB PO (10:57)
[2022-10-22] MEDS: citalopram 20 mg Tablet 40 MG PO (10:57)
[2022-10-22] MEDS: risperiDONE 0.25 mg Tablet 0.5 MG PO ×2 (10:57→18:31)
[2022-10-22] MEDS: liothyronine 5 mcg Tablet 10 MCG PO ×2 (10:58→22:03)
[2022-10-22] MEDS: docusate sodium 100 mg Capsule PO ×2 (10:58→18:31)
[2022-10-22] MEDS: ferrous gluconate 324 mg Tablet PO ×2 (11:01→18:31)
[2022-10-22 11:21] VITALS: BP 138/89; PULSE 98; RESP 17; TEMP 37; O2SAT 95
--- NOTE | 2022-10-22 12:16 | PC.CHAP ---
Pastoral Care Encounter/Spiritual Assessment Type of Contact [] Declined rib matcher and fitter visit [] Patient/Family/Request visit [] Outpatient visit [] Follow-up visit [] Physician referral [] Code/Alert [x] Routine visit [] Staff referral [] Actively dying [] Patient sleeping [] Family support [] [] Out of room [] Palliative care [] [x] Receiving care in room [] Pre-surgical visit [] Trauma [] Long length of stay [] ICU visit [] Other: Relational/Emotional Strength [] Patient feels connected with others/family/visitors/staff [] Distress [] Loneliness/isolation [] Abandonment Spirituality of Patient [] Person of Rika [] Attends Quaker of their Rika [] Believes in Prayer [] Reads Bible or Sikh materials [] There are Spiritual issues to be addressed Service Clerk Interventions [] Prayer [] Active listening [] Non-anxious presence [] Spiritual/emotional support [] Crisis/trauma care [] Spiritual counseling [] Bereavement support [] Provided bereavement packet [] Provided Bible/devotional materials [] Provided toy/stuffed animal, coloring book to patient or family member [] Provided Communion [] Anointing/[place] [] Salvation [x] Completed spiritual assessment [] Other: Impact on Illness or Injury [] Angry [] Fearful [] Anxious [] Often cries [] Exhaustion [] Unable to work [] Unable to attend temple [] Unable to walk/stand [] Unable to read [] Unable to drive [] Unable to eat/drink [] Unable to sleep [] Unable to be with family [] Patient intubated [] Other: Summary on a monator unable unable to communicate with her Time spent with patient 5 mins
[2022-10-22] MEDS: cefTRIAXone 1,000 MG in sodium chloride 0.9% (plus) 50 ML 100 MG IV (18:21)
[2022-10-22 20:11] VITALS: BP 101/64; PULSE 57; RESP 18; TEMP 36.6; O2SAT 99
[2022-10-22] MEDS: donepezil 5 MG Tablet 10 MG PO (22:02)
[2022-10-22] MEDS: OLANZapine 5 mg TABLET PO (22:04)
[2022-10-23] VITALS (8 sets, daily range): BP systolic 95–130; BP diastolic 55–67; PULSE 49–80; RESP 13–20; TEMP 36.3–36.4; O2SAT 90–98
[2022-10-23 05:34] LABS: Basophils % 0.2 %; Eosinophils % 0.3 %; Hemoglobin 11.8 g/dL (11.5-15.3); Lymphocytes # 0.9 10^3/uL (0.8-4.8); Lymphocytes % 7.3 %; Mean Corpuscular HGB Conc 31.9 g/dL (30.0-36.0); Mean Corpuscular Hemoglobin 31.1 pg (28.0-34.0); Mean Corpuscular Volume 97.6 fl (81-99); Mean Platelet Volume 9.1 fL (7.4-10.4); Monocytes # 0.7 10^3/uL (0.2-0.9); Monocytes % 6.2 %; Neutrophils # 10.05 10^3/uL (1.8-7.7); Neutrophils % 85.4 %; Nucleated Red Blood Cells % 0 %; Platelet Count 237 10^3/cmm (130-400); Red Blood Count 3.79 10^6/uL (4.1-5.3); Red Cell Distribution Width 15.2 % (12.1-15.1); White Blood Count 11.8 10^3/uL (4.0-10.0)
[2022-10-23 06:08] LABS: Alanine Aminotransferase 13 U/L (0-33); Albumin Level 3.1 g/dL (3.5-5.2); Alkaline Phosphatase 98 U/L (35-105); Anion Gap 12.9 (5-19); Aspartate Amino Transferase 20 U/L (0-32); Blood Urea Nitrogen 17 mg/dL (8-23); Calcium 8.5 mg/dL (8.5-10.5); Carbon Dioxide 26 mmol/L (22-29); Chloride 102 mmol/L (98-107); Creatine Phosphokinase 227 U/L (26-192); Globulin 2.8 g/dL (1.3-4.6); Glucose 109 mg/dL (65-115); Magnesium 2.3 mg/dL (1.7-2.3); Osmolality Calculated 286 mOsm/kg (285-295); Phosphorus 3.9 mg/dL (2.5-4.5); Potassium 3.9 mmol/L (3.5-5.1); Sodium 137 mmol/L (136-145); T3 Free 1.4 PG/ML (2.0-4.4); Thyroid Stimulating Hormone 89.49 uIU/mL (0.27-4.20); Total Bilirubin 0.3 mg/dL (0.15-1.2); Total Protein 5.9 g/dL (6.6-8.7)
[2022-10-23] MEDS: dextrose 5%-sod chloride 0.9% 1,000 ML 75 ML IV ×2 (06:19→19:34)
[2022-10-23 06:50] LABS: CKMB 5.3 ng/mL (0-5.34)
[2022-10-23] MEDS: levothyroxine 100 mcg SDV IVP (11:28)
--- NOTE | 2022-10-23 12:31 | PM.PN ---
Subjective Subjective: Patient was seen this morning she does awaken, she tells me that she is hungry, but falls back asleep, according to nursing staff no episodes of agitation overnight Vitals/I&O/Wt Last Vital Signs Temp 97.4 F L 10/23/22 03:35 Pulse 80 10/23/22 12:00 Resp 14 10/23/22 12:00 BP 122/67 10/23/22 12:00 Pulse Ox 93 10/23/22 12:00 O2 Del Method 10/23/22 03:35 10/22/22 10/23/22 10/23/22 22:59 06:59 14:59 Intake Total 50 / 50 120 / 170 Balance 50 / 50 120 / 170 Weight last 48 hrs Weight 57.742 kg Weight 60.963 kg Physical Exam Const: COMMON NORMALS: no acute distress EXAM LIMITATIONS: altered mental status ORIENTATION/CONSCIOUSNESS: Yes awake, Yes oriented to person and Yes confused; not oriented to place and not oriented to time Resp: COMMON NORMALS: normal respiratory effort, No retractions, No use of accessory muscles and clear to auscultation bilaterally AUSCULTATION: clear to auscultation bilaterally Cardio: COMMON NORMALS: regular rate, regular rhythm, S1 normal heart sound present and S2 normal heart sound present RATE: regular rate RHYTHM: regular rhythm HEART SOUNDS: S1 normal heart sound present and S2 normal heart sound present GI: COMMON NORMALS: Normal to inspection, nondistended, normoactive bowel sounds present and non-tender Extremity: COMMON NORMALS: no pedal edema Neuro: SENSORIUM/ORIENTATION: Yes oriented to person, No oriented to place and No oriented to time Psych: COMMON NORMALS: mental status grossly normal Data 10/23/22 04:58 10/23/22 04:58 Micro: Microbiology 10/21/22 18:21 Blood Culture - Preliminary Blood NEGATIVE TO DATE 10/21/22 18:26 Blood Culture - Preliminary Blood NEGATIVE TO DATE A&P Assessment and plan (1) Acute encephalopathy: (2) Myxedema coma: (3) Rhabdomyolysis: (4) Acute kidney injury: (5) NSTEMI (non-ST elevated myocardial infarction): Plan Acute encephalopathy -Likely secondary to underlying dementia -However given elevated TSH, could be a component of myxedema coma -Neurochecks, aspiration precautions, night stroke scale -Monitor vitals closely Myxedema coma -TSH still 89.49, free T40.3, free T31.4 -Try Cytomel -We do not have IV Cytomel -100mcg IV levothyroxine -Telemetry monitoring -Continuous pulse ox NSTEMI, likely type II NSTEMI supply demand ischemia from myxedema coma encephalopathy, monitor Rhabdomyolysis, IV fluids GHASSAN, IV fluids Obtain UA, obtain blood cultures, Has NSTEMI, likely secondary to encephalopathy, myxedema coma CT of the head Brain: Moderate diffuse cortical volume loss. Moderate hypodensities in supratentorial periventricular and subcortical white matter, consistent with microangiopathy. No intracranial hemorrhage. Cerebral ventricles: No ventriculomegaly. Paranasal sinuses: Visualized sinuses are unremarkable. No fluid levels. Mastoid air cells: Visualized mastoid air cells are well aerated. 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
[2022-10-23 13:53] LABS: Add Urine Microscopic? YES; Bilirubin Urine Neg (Negative); Blood Urine Neg (Negative); Glucose Urine UA Norm (Normal); Ketones Urine 1+ (Negative); Leukocyte Esterase Urine Negative (Negative); Nitrate Urine Negative (Negative); Protein Urine Neg (Negative); Specific Gravity, Urine 1.025 (1.005-1.030); Urine Appearance SL Hazy (CLEAR); Urine Color Yellow (Yellow); Urobilinogen Urine Norm (Negative); pH Urine 5 (5-7)
[2022-10-23 13:54] LABS: RBC Urine 0-4 /hpf (0-2)
[2022-10-23 13:55] LABS: Bacteria Urine TRACE /hpf; Mucus Urine 2+ /hpf; Squamous Epithelial Cell Urine 0-4 /hpf (0-5); WBC Urine 15-25 /hpf (0-5)
[2022-10-23 13:56] LABS: Add Urine Culture? No; Hyaline Casts Urine 0-4 /lpf
[2022-10-23] MEDS: haloperidol inj 5 mg/mL INJ 1 mL 1 MG IM (14:52)
[2022-10-23] MEDS: cefTRIAXone 1,000 MG in sodium chloride 0.9% (plus) 50 ML 100 MG IV (18:27)
[2022-10-24 04:00] VITALS: BP 127/67; PULSE 64; RESP 16; TEMP 36.5; O2SAT 95
[2022-10-24 05:51] LABS: Basophils % 0.5 %; Eosinophils # 0.1 10^3/uL (0.0-0.8); Eosinophils % 1.7 %; Hematocrit 36.8 % (37.0-47.0); Hemoglobin 11.8 g/dL (11.5-15.3); Lymphocytes # 0.8 10^3/uL (0.8-4.8); Lymphocytes % 9.9 %; Mean Corpuscular HGB Conc 32.1 g/dL (30.0-36.0); Mean Corpuscular Hemoglobin 31.7 pg (28.0-34.0); Mean Corpuscular Volume 98.9 fl (81-99); Mean Platelet Volume 9.1 fL (7.4-10.4); Monocytes # 0.8 10^3/uL (0.2-0.9); Monocytes % 9.2 %; Neutrophils # 6.49 10^3/uL (1.8-7.7); Neutrophils % 78.2 %; Nucleated Red Blood Cells % 0 %; Platelet Count 225 10^3/cmm (130-400); Red Blood Count 3.72 10^6/uL (4.1-5.3); Red Cell Distribution Width 15.3 % (12.1-15.1); White Blood Count 8.3 10^3/uL (4.0-10.0)
[2022-10-24 06:24] LABS: Alanine Aminotransferase 11 U/L (0-33); Albumin Level 2.9 g/dL (3.5-5.2); Alkaline Phosphatase 92 U/L (35-105); Anion Gap 10.9 (5-19); Aspartate Amino Transferase 16 U/L (0-32); Blood Urea Nitrogen 15 mg/dL (8-23); Carbon Dioxide 24 mmol/L (22-29); Chloride 107 mmol/L (98-107); Creatine Phosphokinase 160 U/L (26-192); Free T4 Free Thyroxine 0.37 ng/dL (0.82-1.77); Globulin 2.6 g/dL (1.3-4.6); Glucose 99 mg/dL (65-115); Magnesium 2.3 mg/dL (1.7-2.3); Osmolality Calculated 287 mOsm/kg (285-295); Phosphorus 2.6 mg/dL (2.5-4.5); Potassium 3.9 mmol/L (3.5-5.1); Sodium 138 mmol/L (136-145); T3 Free 1.1 PG/ML (2.0-4.4); Thyroid Stimulating Hormone 99.08 uIU/mL (0.27-4.20); Total Bilirubin 0.2 mg/dL (0.15-1.2); Total Protein 5.5 g/dL (6.6-8.7)
[2022-10-24] MEDS: haloperidol inj 5 mg/mL INJ 1 mL 1 MG IM ×2 (08:07→14:50)
[2022-10-24] MEDS: multivitamin therapeutic Tablet 1 TAB PO (09:48)
[2022-10-24] MEDS: citalopram 20 mg Tablet 40 MG PO (09:48)
[2022-10-24] MEDS: liothyronine 5 mcg Tablet 10 MCG PO ×2 (09:48→20:06)
[2022-10-24] MEDS: docusate sodium 100 mg Capsule PO ×2 (09:48→17:44)
[2022-10-24] MEDS: ferrous gluconate 324 mg Tablet PO ×2 (09:48→17:44)
[2022-10-24] MEDS: OLANZapine 10 mg VIAL 5 MG IM ×2 (09:58→10:16)
[2022-10-24] MEDS: levothyroxine 100 mcg SDV 75 MCG IVP ×2 (10:26→10:27)
[2022-10-24] MEDS: dextrose 5%-sod chloride 0.9% 1,000 ML 75 ML IV ×2 (10:35→23:02)
[2022-10-24 12:00] VITALS: BP 155/72; PULSE 54; RESP 16; TEMP 36.6; O2SAT 98
--- NOTE | 2022-10-24 13:07 | PC.SOCIAL ---
Pg 2 IMM Explained to pt's , Pg 2 IMM. No questions voiced. Provided pt a copy. Initialed, dated, & timed a copy & placed in chart.
--- NOTE | 2022-10-24 15:51 | P.PN_ITS ---
Subjective Subjective: Patient had a difficult night, according to nursing staff earlier this morning became combative, agitated, required Haldol, is more calm this morning, she is alert to person, not to place, to time she does follow commands, such as opening her eyes, squeezing my fingers, says she is hungry, breakfast tray at bedside, nursing staff at bedside Vitals/I&O/Wt Last Vital Signs Temp 97.9 F 10/24/22 12:00 Pulse 54 L 10/24/22 12:00 Resp 16 10/24/22 12:00 BP 155/72 10/24/22 12:00 Pulse Ox 98 10/24/22 12:00 O2 Del Method 10/24/22 12:00 10/24/22 10/24/22 10/24/22 06:59 14:59 22:59 Intake Total 120 / 1163.75 1240 / 1240 Output Total 1100 / 1500 Balance -980 / -336.25 1240 / 1240 Weight last 48 hrs Weight 59.285 kg Weight 57.742 kg Physical Exam Const: COMMON NORMALS: no acute distress ORIENTATION/CONSCIOUSNESS: Yes awake and Yes oriented to person; not oriented to place and not oriented to time Resp: COMMON NORMALS: normal respiratory effort, No retractions, No use of accessory muscles and clear to auscultation bilaterally AUSCULTATION: clear to auscultation bilaterally Cardio: COMMON NORMALS: regular rate, regular rhythm, S1 normal heart sound present and S2 normal heart sound present RATE: regular rate RHYTHM: regular rhythm HEART SOUNDS: S1 normal heart sound present and S2 normal heart sound present GI: COMMON NORMALS: Normal to inspection, nondistended, normoactive bowel sounds present Extremity: COMMON NORMALS: no pedal edema Neuro: SENSORIUM/ORIENTATION: Yes oriented to person, No oriented to place and No oriented to time Data 10/24/22 05:11 10/24/22 05:11 A&P Assessment and plan (1) Acute encephalopathy: (2) Myxedema coma: (3) Rhabdomyolysis: (4) Acute kidney injury: (5) NSTEMI (non-ST elevated myocardial infarction): Plan Acute encephalopathy -Likely secondary to underlying dementia -However given elevated TSH, could be a component of myxedema coma -Neurochecks, aspiration precautions, night stroke scale -Monitor vitals closely Myxedema coma -TSH 99, free T4 0.37, free T3 1.1 -Tried to for her to take p.o. Cytomel -We do not have IV Cytomel - 75 mcg IV levothyroxine -Telemetry monitoring -Continuous pulse ox NSTEMI, likely type II NSTEMI supply demand ischemia from myxedema coma encephalopathy, monitor Rhabdomyolysis, IV fluids GHASSAN, IV fluids Obtain UA, obtain blood cultures, Has NSTEMI, likely secondary to encephalopathy, myxedema coma CT of the head Brain: Moderate diffuse cortical volume loss. Moderate hypodensities in supratentorial periventricular and subcortical white matter, consistent with microangiopathy. No intracranial hemorrhage. Cerebral ventricles: No ventriculomegaly. Paranasal sinuses: Visualized sinuses are unremarkable. No fluid levels. Mastoid air cells: Visualized mastoid air cells are well aerated. 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
[2022-10-24 16:00] VITALS: BP 154/70; PULSE 64; RESP 16; TEMP 36.6; O2SAT 96
[2022-10-24] MEDS: cefTRIAXone 1,000 MG in sodium chloride 0.9% (plus) 50 ML 100 MG IV (17:44)
[2022-10-24 19:02] VITALS: BP 142/76; PULSE 59; RESP 21; TEMP 36.8; O2SAT 99
[2022-10-24] MEDS: donepezil 5 MG Tablet 10 MG PO (20:06)
[2022-10-24] MEDS: OLANZapine 5 mg TABLET PO (20:06)
[2022-10-24 23:37] VITALS: BP 127/66; PULSE 51; RESP 17; TEMP 36.5; O2SAT 96
[2022-10-25 04:00] VITALS: BP 166/71; PULSE 52; RESP 17; TEMP 36.6; O2SAT 98
[2022-10-25 04:47] LABS: Basophils % 0.5 %; Eosinophils # 0.2 10^3/uL (0.0-0.8); Eosinophils % 1.8 %; Hemoglobin 11.7 g/dL (11.5-15.3); Lymphocytes % 11.5 %; Mean Corpuscular HGB Conc 30.8 g/dL (30.0-36.0); Mean Corpuscular Hemoglobin 30.2 pg (28.0-34.0); Mean Corpuscular Volume 97.9 fl (81-99); Mean Platelet Volume 9.1 fL (7.4-10.4); Monocytes # 0.9 10^3/uL (0.2-0.9); Monocytes % 10.6 %; Neutrophils # 6.33 10^3/uL (1.8-7.7); Neutrophils % 75.1 %; Nucleated Red Blood Cells % 0 %; Platelet Count 225 10^3/cmm (130-400); Red Blood Count 3.88 10^6/uL (4.1-5.3); Red Cell Distribution Width 14.9 % (12.1-15.1); White Blood Count 8.4 10^3/uL (4.0-10.0)
[2022-10-25 05:22] LABS: Alanine Aminotransferase 12 U/L (0-33); Albumin Level 2.8 g/dL (3.5-5.2); Alkaline Phosphatase 96 U/L (35-105); Anion Gap 11.8 (5-19); Aspartate Amino Transferase 18 U/L (0-32); Blood Urea Nitrogen 9 mg/dL (8-23); Carbon Dioxide 25 mmol/L (22-29); Chloride 106 mmol/L (98-107); Creatine Phosphokinase 183 U/L (26-192); Free T4 Free Thyroxine 0.43 ng/dL (0.82-1.77); Globulin 2.9 g/dL (1.3-4.6); Glucose 97 mg/dL (65-115); Magnesium 2.4 mg/dL (1.7-2.3); Osmolality Calculated 287 mOsm/kg (285-295); Phosphorus 2.7 mg/dL (2.5-4.5); Potassium 3.8 mmol/L (3.5-5.1); Sodium 139 mmol/L (136-145); T3 Free 1.8 PG/ML (2.0-4.4); Thyroid Stimulating Hormone 79.34 uIU/mL (0.27-4.20); Total Bilirubin 0.2 mg/dL (0.15-1.2); Total Protein 5.7 g/dL (6.6-8.7)
[2022-10-25 07:57] VITALS: BP 149/65; PULSE 46; RESP 15; TEMP 36.4; O2SAT 98
[2022-10-25] MEDS: multivitamin therapeutic Tablet 1 TAB PO (08:47)
[2022-10-25] MEDS: ferrous gluconate 324 mg Tablet PO (08:47)
[2022-10-25] MEDS: citalopram 20 mg Tablet 40 MG PO (08:47)
[2022-10-25] MEDS: liothyronine 5 mcg Tablet 10 MCG PO (08:48)
[2022-10-25] MEDS: docusate sodium 100 mg Capsule PO (08:48)
[2022-10-25] MEDS: levothyroxine 100 mcg SDV 75 MCG IVP (09:07)
[2022-10-25 12:00] VITALS: BP 139/64; PULSE 72; RESP 18; TEMP 36.5; O2SAT 97
--- NOTE | 2022-10-25 14:55 | P.PN_ITS ---
Subjective Subjective: Patient was seen this morning, she is alert to person, not to place, not sure if she is much more calm this morning, she does follow commands, no complaints Vitals/I&O/Wt Last Vital Signs Temp 97.7 F 10/25/22 12:00 Pulse 72 10/25/22 12:00 Resp 18 10/25/22 12:00 BP 139/64 10/25/22 12:00 Pulse Ox 97 10/25/22 12:00 O2 Del Method 10/25/22 12:00 10/24/22 10/25/22 10/25/22 22:59 06:59 14:59 Intake Total 710 / 1950 1173.75 / 3123.75 1090 / 1090 Output Total 900 / 900 400 / 1300 800 / 800 Balance -190 / 1050 773.75 / 1823.75 290 / 290 Weight last 48 hrs Weight 60.237 kg Weight 59.285 kg Physical Exam Const: COMMON NORMALS: no acute distress and patient oriented x3 Resp: COMMON NORMALS: normal respiratory effort, No retractions, No use of accessory muscles and clear to auscultation bilaterally AUSCULTATION: clear to auscultation bilaterally Cardio: COMMON NORMALS: regular rate, regular rhythm, S1 normal heart sound present and S2 normal heart sound present RATE: regular rate RHYTHM: regular rhythm HEART SOUNDS: S1 normal heart sound present and S2 normal heart sound present GI: COMMON NORMALS: Normal to inspection, nondistended, normoactive bowel daja nds present and non-tender Extremity: COMMON NORMALS: no pedal edema Neuro: COMMON NORMALS: patient oriented x3 Psych: COMMON NORMALS: mental status grossly normal Data 10/25/22 04:20 10/25/22 04:20 A&P Assessment and plan (1) Acute encephalopathy: (2) Myxedema coma: (3) Rhabdomyolysis: (4) Acute kidney injury: (5) NSTEMI (non-ST elevated myocardial infarction): Plan Acute encephalopathy -Likely secondary to underlying dementia -However given elevated TSH, could be a component of myxedema coma -Neurochecks, aspiration precautions, night stroke scale -Monitor vitals closely Myxedema coma -TSH 99, free T4 0.37, free T3 1.1 -Continue p.o. Cytomel -We do not have IV Cytomel - 75 mcg IV levothyroxine 1 dose today, according to she takes 175 mcg once daily, will give another 25mcg ivp today -Telemetry monitoring -Continuous pulse ox NSTEMI, likely type II NSTEMI supply demand ischemia from myxedema coma encephalopathy, monitor Rhabdomyolysis, IV fluids GHASSAN, IV fluids Obtain UA, obtain blood cultures, Has NSTEMI, likely secondary to encephalopathy, myxedema coma CT of the head Brain: Moderate diffuse cortical volume loss. Moderate hypodensities in supratentorial periventricular and subcortical white matter, consistent with microangiopathy. No intracranial hemorrhage. Cerebral ventricles: No ventriculomegaly. Paranasal sinuses: Visualized sinuses are unremarkable. No fluid levels. Mastoid air cells: Visualized mastoid air cells are well aerated. 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
[2022-10-25] MEDS: levothyroxine 100 mcg SDV 25 MCG IVP (15:49)
[2022-10-25 16:00] VITALS: BP 165/82; PULSE 62; RESP 15; TEMP 36.6; O2SAT 98
--- NOTE | 2022-10-25 18:27 | PC.NURSE ---
Pt is currently resting in bed with bed alarm set. Pt has tried getting out of bed numerous times so bed alarm has been repeatedly set. Pt is confused/agitated but was able to be calmed down. Pt refused evening meds. Room is cleaned up with call light and bedside table in reach.
[2022-10-25 20:00] VITALS: BP 125/75; PULSE 66; RESP 16; TEMP 36.6; O2SAT 96
[2022-10-25] MEDS: donepezil 5 MG Tablet 10 MG PO (20:04)
[2022-10-25] MEDS: OLANZapine 5 mg TABLET PO (20:04)
[2022-10-26] VITALS (8 sets, daily range): BP systolic 121–174; BP diastolic 65–79; PULSE 51–73; RESP 16–17; TEMP 36.6–36.9; O2SAT 62–98
[2022-10-26 05:34] LABS: Free T4 Free Thyroxine 0.54 ng/dL (0.82-1.77); T3 Free 1.8 PG/ML (2.0-4.4); Thyroid Stimulating Hormone 61.61 uIU/mL (0.27-4.20)
[2022-10-26] MEDS: citalopram 20 mg Tablet 40 MG PO (09:42)
[2022-10-26] MEDS: ferrous gluconate 324 mg Tablet PO ×2 (09:42→18:34)
[2022-10-26] MEDS: levothyroxine 175 mcg Tablet PO (09:42)
[2022-10-26] MEDS: docusate sodium 100 mg Capsule PO ×2 (09:42→18:34)
[2022-10-26] MEDS: multivitamin therapeutic Tablet 1 TAB PO (09:42)
--- NOTE | 2022-10-26 12:55 | PC.SOCIAL ---
IMM Update pg 2 of IMM updated and reviewed w/ patient's . Copy left @ bedside and copy in chart dated, and initialed.
[2022-10-26] MEDS: LORazepam 2 mg/mL INJ 1 mL 1 MG IM (14:14)
--- NOTE | 2022-10-26 18:56 | PC.NURSE ---
Pt is currently resting in bed. Bed alarm has been diligently set throughout shift. Pts call light and table are within reach. Pt is still awaiting placement.
--- NOTE | 2022-10-26 20:46 | P.PN_ITS ---
Subjective Subjective: Somnolent. Wakes up to voice. Not answering questions, not providing history. Does appear to show no when asked if she has any pain or discomfort. Vitals/I&O/Wt Last Vital Signs Temp 98.1 F 10/26/22 15:48 Pulse 60 10/26/22 15:48 Resp 16 10/26/22 15:48 BP 122/71 10/26/22 15:48 Pulse Ox 62 L 10/26/22 15:48 O2 Del Method 10/26/22 11:53 10/26/22 10/26/22 10/26/22 06:59 14:59 22:59 Intake Total 480 / 480 240 / 720 Balance 480 / 480 240 / 720 Weight last 48 hrs Weight 60.056 kg Weight 60.237 kg Physical Exam Const: GENERAL APPEARANCE: not cooperative, not anxious and not combative ORIENTATION/CONSCIOUSNESS: Yes awake HENMT: COMMON NORMALS: oropharynx normal Neck/C-Spine: COMMON NORMALS: no JVD Resp: COMMON NORMALS: normal respiratory effort and clear to auscultation bilaterally AUSCULTATION: clear to auscultation bilaterally Cardio: COMMON NORMALS: no JVD, regular rhythm, S1 normal heart sound present, S2 normal heart sound present and No murmurs present (Cardio) RHYTHM: regular rhythm HEART SOUNDS: S1 normal heart sound present and S2 normal heart sound present GI: COMMON NORMALS: Normal to inspection, nondistended, normoactive bowel so unds present, Soft to palpation and non-tender PALPATION: Yes Soft to pal pation Extremity: COMMON NORMALS: no joint enlargement and no pedal edema Neuro: COMMON NORMALS: moves all extremities Data 10/25/22 04:20 10/25/22 04:20 Micro: Microbiology 10/21/22 18:21 Blood Culture - Final Blood NO GROWTH AFTER 5 DAYS 10/21/22 18:26 Blood Culture - Final Blood NO GROWTH AFTER 5 DAYS A&P Assessment and plan (1) Acute encephalopathy: (2) Myxedema coma: (3) Rhabdomyolysis: (4) Acute kidney injury: (5) NSTEMI (non-ST elevated myocardial infarction): Plan Acute encephalopathy: Currently not agitated or combative. Wakes up to voice. Does not follow directions. Does not give history, ROS. Reviewed thyroid studies, free T3 without improvement, but TSH is improving. Continue with oxygen follow-up TSH, free T3 and T4 are requested. -underlying dementia Myxedema coma: As above. NSTEMI, likely type II NSTEMI supply demand ischemia from myxedema coma encephalopathy, monitor Rhabdomyolysis, IV fluids GHASSAN, IV fluids Obtain UA, obtain blood cultures, Has NSTEMI, likely secondary to encephalopathy, myxedema coma CT of the head Brain: Moderate diffuse cortical volume loss. Moderate hypodensities in supratentorial periventricular and subcortical white matter, consistent with microangiopathy. No intracranial hemorrhage. Cerebral ventricles: No ventriculomegaly. Paranasal sinuses: Visualized sinuses are unremarkable. No fluid levels. Mastoid air cells: Visualized mastoid air cells are well aerated. Orbital cavities: Prior cataract surge Underlying Alzheimer's dementia -Continue Zyprexa 5 mg at bedtime -So far patient responding to the correct. Not further agitated. -Wandering behavior appears to be improving. -Ativan as needed, Haldol as needed to control agitation Attestations Medical Necessity Statement*: Continue admission for optimization of control symptoms of encephalopathy, with underlying dementia. Reassessment of improving myxedema coma. Post discharge planning and arrangements. 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
[2022-10-26] MEDS: OLANZapine 5 mg TABLET PO (21:16)
[2022-10-26] MEDS: donepezil 5 MG Tablet 10 MG PO (21:16)
[2022-10-27] VITALS (8 sets, daily range): BP systolic 102–165; BP diastolic 64–74; PULSE 52–79; RESP 14–17; TEMP 36.6–36.9; O2SAT 94–98
[2022-10-27 06:35] LABS: T3 Free 1.4 PG/ML (2.0-4.4); Thyroid Stimulating Hormone 52.84 uIU/mL (0.27-4.20)
[2022-10-27] MEDS: multivitamin therapeutic Tablet 1 TAB PO (08:54)
[2022-10-27] MEDS: citalopram 20 mg Tablet 40 MG PO (08:54)
[2022-10-27] MEDS: ferrous gluconate 324 mg Tablet PO ×2 (08:54→17:47)
[2022-10-27] MEDS: levothyroxine 175 mcg Tablet PO (08:54)
[2022-10-27] MEDS: docusate sodium 100 mg Capsule PO ×2 (08:54→17:47)
--- NOTE | 2022-10-27 14:19 | PM.DCS ---
Discharge Providers Date of Admission: 10/21/22 03:06 Date of Discharge: October 27, 2022 Attending Provider at Admission: Steven Ruiz MD Attending Provider at Discharge: Luis Hale Primary Care Provider: Roosevelt Palacios MD Diagnoses at Discharge Discharge Diagnosis (1) Acute encephalopathy: Status: Acute (2) Myxedema coma: Status: Acute (3) Rhabdomyolysis: Status: Acute (4) Acute kidney injury: Status: Acute (5) NSTEMI (non-ST elevated myocardial infarction): Status: Acute Reason for Visit Reason for Visit: Alzheimer's Hospital Course Hospital Course 82-year-old lady with history of advanced Alzheimer's dementia with history of Graves' disease, hypothyroidism, GERD, her is usually her primary caregiver but was unable to take care of her. Position with acute encephalopathy, was also noted to have severe hypothyroidism, myxedema coma, but also with episodes of agitation, worsening confusion, on presentation also with GHASSAN, rhabdomyolysis. Received IV levothyroxine, IV fluids, will also started on antipsychotic regimen with olanzapine, also started on antidepressant. Primary. Certainly not donepezil. GHASSAN resolved. CT of the head with mild diffuse cortical volume loss, moderate hypodensities in the supratentorial periventricular and subcortical white matter consistent with microangiopathy. No hemorrhage. No ventriculomegaly. Acute encephalopathy gradually improved and resolved. She now is awake and alert, pleasant, cooperative, denies any pain or discomfort. Not oriented and not able to provide any history. She is otherwise ambulatory, while in the hospital was noted wandering, elopement risk due to dementia. Please reassess thyroid parameters in 2 weeks, continue to optimize treatment. Attempt to prevent dehydration. Consider neurology follow-up for dementia. Physical Exam Const: COMMON NORMALS: alert; negative for patient oriented x3 GENERAL APPEARANCE: cooperative ORIENTATION/CONSCIOUSNESS: Yes awake Neck/C-Spine: COMMON NORMALS: no JVD Resp: COMMON NORMALS: normal respiratory effort and clear to auscultation bilaterally AUSCULTATION: clear to auscultation bilaterally Cardio: COMMON NORMALS: no JVD and regular rhythm RHYTHM: regular rhythm GI: COMMON NORMALS: Soft to palpation and non-tender PALPATION: Yes Soft to palpation Extremity: COMMON NORMALS: no pedal edema Neuro: COMMON NORMALS: moves all extremities; negative for patient oriented x3 SENSORIUM/ORIENTATION: Yes alert Discharge Data Studies Completed and Pending Completed Studies During Hospitalization Category Date Time Status CT head wo con* [id number] Stat Cat Scan 10/20/22 22:29 Completed Radiology Impressions Head CT 10/20/22 22:29 IMPRESSION: 1. No acute intracranial abnormality. 2. Small left frontal scalp hematoma. Laboratory Results WBC 8.4 10^3/uL (4.0-10.0) 10/25/22 04:20 Corrected WBC Cancelled 10/20/22 00:36 RBC 3.88 10^6/uL (4.1-5.3) L 10/25/22 04:20 Hgb 11.7 g/dL (11.5-15.3) 10/25/22 04:20 Hct 38.0 % (37.0-47.0) 10/25/22 04:20 MCV 97.9 fl (81-99) 10/25/22 04:20 MCH 30.2 pg (28.0-34.0) 10/25/22 04:20 MCHC 30.8 g/dL (30.0-36.0) 10/25/22 04:20 RDW 14.9 % (12.1-15.1) 10/25/22 04:20 Plt Count 225 10^3/cmm (130-400) 10/25/22 04:20 MPV 9.1 fL (7.4-10.4) 10/25/22 04:20 Gran % Cancelled 10/20/22 00:36 Neut % (Auto) 75.1 % 10/25/22 04:20 Lymph % (Auto) 11.5 % 10/25/22 04:20 [place] % (Auto) 10.6 % 10/25/22 04:20 Eos % (Auto) 1.8 % 10/25/22 04:20 Baso % (Auto) 0.5 % 10/25/22 04:20 Neut # (Auto) 6.33 10^3/uL (1.8-7.7) 10/25/22 04:20 Lymph # (Auto) 1.0 10^3/uL (0.8-4.8) 10/25/22 04:20 [place] # (Auto) 0.9 10^3/uL (0.2-0.9) 10/25/22 04:20 Eos # (Auto) 0.2 10^3/uL (0.0-0.8) 10/25/22 04:20 Baso # (Auto) 0.0 10^3/uL (0.0-0.1) 10/25/22 04:20 Absolute Gran (auto) Cancelled 10/20/22 00:36 Nucleated RBC % (auto) 0 % 10/25/22 04:20 Nucleated RBCs # 0.0 /100WBC 10/25/22 04:20 Sodium 139 mmol/L (136-145) 10/25/22 04:20 Potassium 3.8 mmol/L (3.5-5.1) 10/25/22 04:20 Chloride 106 mmol/L (98-107) 10/25/22 04:20 Carbon Dioxide 25 mmol/L (22-29) 10/25/22 04:20 Anion Gap 11.8 (5-19) 10/25/22 04:20 BUN 9 mg/dL (8-23) 10/25/22 04:20 Creatinine 0.8 mg/dL (0.5-0.9) 10/25/22 04:20 GFR Calculation Not Reportable 10/25/22 04:20 Glucose 97 mg/dL (65-115) 10/25/22 04:20 Estimat Average Glucose 97 10/22/22 04:48 Hemoglobin A1c 5.0 % (4.0-6.0) 10/22/22 04:48 Calculated Osmolality 287 mOsm/kg (285-295) 10/25/22 04:20 Lactate 1.0 mmol/L (0.5-2.2) 10/21/22 18:21 Calcium 8.0 mg/dL (8.5-10.5) L 10/25/22 04:20 Phosphorus 2.7 mg/dL (2.5-4.5) 10/25/22 04:20 Magnesium 2.4 mg/dL (1.7-2.3) H 10/25/22 04:20 Iron 70 ug/dL (37-145) 10/21/22 00:36 TIBC 305 mcg/dl 10/21/22 00:36 % Saturation 22.9 % (20-50) 10/21/22 00:36 Unsat Iron Binding 235 ug/dL (112-347) 10/21/22 00:36 Total Bilirubin 0.2 mg/dL (0.15-1.2) 10/25/22 04:20 AST 18 U/L (0-32) 10/25/22 04:20 ALT 12 U/L (0-33) 10/25/22 04:20 Alkaline Phosphatase 96 U/L (35-105) 10/25/22 04:20 Creatine Kinase 183 U/L (26-192) 10/25/22 04:20 CK-MB (CK-2) 5.3 ng/mL (0-5.34) 10/23/22 04:58 CK-MB (CK-2) Rel Index % (0.0-10.4) 10/23/22 04:58 Troponin T Baseline 69 ng/L (0-10) H 10/21/22 18:21 Troponin T 120 Minute 69.64 ng/L (0-10) H 10/21/22 20:21 Delta Troponin T 0.64 ABS# (0-10) 10/21/22 20:21 Troponin T Hi Sens 6Hr 68.57 ng/L (0-10) H 10/21/22 23:56 Troponin T Hi Sens 6Hr Delta -0.43 ng/L (0-12) L 10/21/22 23:56 Total Protein 5.7 g/dL (6.6-8.7) L 10/25/22 04:20 Albumin 2.8 g/dL (3.5-5.2) L 10/25/22 04:20 Globulin 2.9 g/dL (1.3-4.6) 10/25/22 04:20 Triglycerides 107 mg/dL (0-150) 10/22/22 04:48 Cholesterol 236 mg/dL (0-200) H 10/22/22 04:48 LDL Cholesterol, Calc 138 mg/dL (50-129) H 10/22/22 04:48 Total VLDL Cholesterol 21 mg/dL (0-30) 10/22/22 04:48 HDL Cholesterol 77 mg/dL (60-100) 10/22/22 04:48 Cholesterol/HDL Ratio 3.06 mg/dL (0.0-4.40) 10/22/22 04:48 Vitamin B12 240 pg/mL (232-1245) 10/21/22 00:36 Folate 6.3 ng/mL (4.8-37.3) 10/21/22 00:36 Procalcitonin 0.04 ng/mL (0-0.5) 10/21/22 00:36 TSH 52.84 uIU/mL (0.27-4.20) H 10/27/22 05:57 Free T4 0.60 ng/dL (0.82-1.77) L 10/27/22 05:57 Free T3 1.4 PG/ML (2.0-4.4) L 10/27/22 05:57 Urine Color Yellow (Yellow) 10/21/22 13:26 Urine Appearance Sl hazy (CLEAR) A 10/21/22 13:26 Urine pH 5 (5-7) 10/21/22 13:26 Ur Specific [place] 1.025 (1.005-1.030) 10/21/22 13:26 Urine Protein Neg (Negative) 10/21/22 13:26 Urine Glucose (UA) Norm (Normal) 10/21/22 13:26 Urine Ketones 1+ (Negative) H 10/21/22 13:26 Urine Blood Neg (Negative) 10/21/22 13:26 Urine Nitrate Negative (Negative) 10/21/22 13:26 Urine Bilirubin Neg (Negative) 10/21/22 13:26 Urine Urobilinogen Norm mg/dL (Negative) 10/21/22 13:26 Ur Leukocyte Esterase Negative (Negative) 10/21/22 13:26 Urine RBC 0-4 /hpf (0-2) H 10/21/22 13:26 Urine WBC 15-25 /hpf (0-5) H 10/21/22 13:26 Ur Squamous Epith Cells 0-4 /hpf (0-5) H 10/21/22 13:26 Amorphous Sediment Not Reportable 10/21/22 13:26 Urine Bacteria Trace /hpf (NONE) 10/21/22 13:26 Hyaline Casts 0-4 /lpf H 10/21/22 13:26 Urine Mucus 2+ /hpf 10/21/22 13:26 Vitals Last Vital Signs Temp 97.8 F 10/27/22 12:00 Pulse 79 10/27/22 12:00 Resp 16 10/27/22 12:00 BP 112/68 10/27/22 12:00 Pulse Ox 94 10/27/22 12:00 O2 Del Method 10/27/22 12:00 Discharge Plan Discharge Patient Disposition: Xfer LTC Condition: Stable Prescriptions: New docusate sodium 100 mg Capsule 100 mg PO BID Qty: 60 0RF levothyroxine 175 mcg Tablet 175 mcg PO DAILY Qty: 30 0RF acetaminophen 325 mg Tablet 650 mg PO Q6H PRN (Reason: Mild/Mod Pain Or Temp >/= 101) Qty: 90 0RF ferrous gluconate 324 mg (37.5 mg iron) Tablet 324 mg PO EVERY OTHER DAY Qty: 90 0RF citalopram 20 mg Tablet 40 mg PO DAILY Qty: 90 0RF donepezil 5 mg Tablet 10 mg PO BEDTIME Qty: 90 0RF multivitamin with folic acid [Thera] 400 mcg Tablet 1 tab PO DAILY Qty: 90 0RF olanzapine 5 mg Tablet 5 mg PO BEDTIME Qty: 90 0RF No Action Unable to Assess Rx Instructions: pt unable to verify medications-ozzie biswas last filled lexapro 5mg daily 07/17/23 30d/s with refills-quetiapine 25mg take 12.5mg daily as needed for agitation filled 07/17/22 30d/s with refills-ozzie last filled levothyroxine 175mcg daily on 05/16/22 90d/s no refills Discharge Orders: Discharge Order (Routine); Ordered 10/27/22 Ordered By: Luis Hale Referrals: [facility] [Outside] Roosevelt Palacios MD [Primary Care Provider] - 4-7 days Activity Restrictions/Additional Instructions: Continue levothyroxine. Reassess thyroid function in 2 weeks. Consider neurology follow-up with regards to dementia. Avoid dehydration. Elopement precautions. 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
[2022-10-27 15:39] LABS: SARS Covid-2 Antigen negative (Negative)
--- NOTE | 2022-10-27 18:42 | PC.NURSE ---
Pt is resting in bed with the bed alarm set. Pt has been calm and resting most of shift. Pt has no current needs at this time. Discharging tomorrow. Call light and table are within reach.
[2022-10-27] MEDS: donepezil 5 MG Tablet 10 MG PO (20:34)
[2022-10-27] MEDS: OLANZapine 5 mg TABLET PO (20:34)
[2022-10-28 00:12] VITALS: BP 104/68; PULSE 62; RESP 17; TEMP 36.7; O2SAT 93
[2022-10-28 03:08] VITALS: BP 104/68; PULSE 62; RESP 17; TEMP 36.7
[2022-10-28 04:35] VITALS: BP 100/68; PULSE 62; RESP 17; TEMP 36.8; O2SAT 93
[2022-10-28 08:00] VITALS: BP 126/81; PULSE 84; RESP 16; TEMP 36.8; O2SAT 92
--- NOTE | 2022-10-28 11:08 | PC.SOCIAL ---
IMM updated Updated pt's son on IMM. No questions voiced. Provided pt a copy. Initialed, dated, & timed a copy in chart.
--- NOTE | 2022-10-28 11:49 | PM.PN ---
Subjective Subjective: Please refer to discharge summary from 10/27. Discharge was delayed due to lack of adequate staff to accept patient at assisted yesterday. She is awake and alert. Finished her breakfast very well. Denies any complaints. Not oriented. Unable to provide history. Denies any needs. Vitals/I&O/Wt Last Vital Signs Temp 98.2 F 10/28/22 08:00 Pulse 84 10/28/22 08:00 Resp 16 10/28/22 08:00 BP 126/81 10/28/22 08:00 Pulse Ox 92 10/28/22 08:00 O2 Del Method 10/28/22 08:00 10/27/22 10/28/22 10/28/22 22:59 06:59 14:59 Intake Total 360 / 560 60 / 620 240 / 240 Balance 360 / 560 60 / 620 240 / 240 Weight last 48 hrs Weight 56.79 kg Weight 58.088 kg Physical Exam Const: COMMON NORMALS: alert; negative for patient oriented x3 GENERAL APPEARANCE: cooperative; not anxious and not combative ORIENTATION/CONSCIOUSNESS: Yes awake HENMT: COMMON NORMALS: oropharynx normal Neck/C-Spine: COMMON NORMALS: no JVD Resp: COMMON NORMALS: normal respiratory effort and clear to auscultation bilaterally AUSCULTATION: clear to auscultation bilaterally Cardio: COMMON NORMALS: no JVD, regular rhythm, S1 normal heart sound present, S2 normal heart sound present and No murmurs present (Cardio) RHYTHM: regular rhythm HEART SOUNDS: S1 normal heart sound present and S2 normal heart sound present GI: COMMON NORMALS: Normal to inspection, nondistended, normoactive bowel sounds present, Soft to palpation and non-tender PALPATION: Yes Soft to palpation Extremity: COMMON NORMALS: no joint enlargement and no pedal edema Neuro: COMMON NORMALS: moves all extremities; negative for patient oriented x3 SENSORIUM/ORIENTATION: Yes alert Data 10/25/22 04:20 10/25/22 04:20 A&P Assessment and plan (1) Acute encephalopathy: (2) Myxedema coma: (3) Rhabdomyolysis: (4) Acute kidney injury: (5) NSTEMI (non-ST elevated myocardial infarction): Plan Acute encephalopathy: Encephalopathy resolved. Underlying dementia. She is pleasant, cooperative. Denies any discomfort or needs. Finished her breakfast well. Later on did declined to take her medications. Reviewed thyroid studies, free T3 without improvement, but TSH is improving. Thyroid function studies with follow-up. -underlying dementia Myxedema coma: As above. NSTEMI, likely type II NSTEMI supply demand ischemia from myxedema coma encephalopathy, monitor Rhabdomyolysis, IV fluids GHASSAN, IV fluids Obtain UA, obtain blood cultures, Has NSTEMI, likely secondary to encephalopathy, myxedema coma CT of the head Brain: Moderate diffuse cortical volume loss. Moderate hypodensities in supratentorial periventricular and subcortical white matter, consistent with microangiopathy. No intracranial hemorrhage. Cerebral ventricles: No ventriculomegaly. Paranasal sinuses: Visualized sinuses are unremarkable. No fluid levels. Mastoid air cells: Visualized mastoid air cells are well aerated. Orbital cavities: Prior cataract surge Underlying Alzheimer's dementia -Continue Zyprexa 5 mg at bedtime -So far patient responding to the correct. Not further agitated. -Wandering behavior appears to be improving. -Ativan as needed, Haldol as needed to control agitation Attestations Medical Necessity Statement*: Discharging to SNF. 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
[2022-10-28 12:00] VITALS: BP 112/74; PULSE 84; RESP 16; TEMP 36.8; O2SAT 94
== END 2022-10-28 14:11 | disposition skilled nursing facility (03) | DRG 80 ==
LOC: ER 10-21 02:56 → MEDSURG 10-21 03:06
PROVIDERS: Family Medicine; Admitting Provider Student in an Organized Health Care Education/Training Program; Emergency Provider Physician Assistant; PCP Internal Medicine; Visit Provider Internal Medicine
DX: E03.5 Myxedema coma (principal); I21.A1 Myocardial infarction type 2; N17.9 Acute kidney failure, unspecified; F02.811 Dementia in other diseases classified elsewhere, unspecified severity, with agitation; M62.82 Rhabdomyolysis; G93.40 Encephalopathy, unspecified; I67.89 Other cerebrovascular disease; G30.9 Alzheimer's disease, unspecified; E03.9 Hypothyroidism, unspecified; E05.00 Thyrotoxicosis with diffuse goiter without thyrotoxic crisis or storm; E86.0 Dehydration; K21.9 Gastro-esophageal reflux disease without esophagitis; Z74.2 Need for assistance at home and no other household member able to render care; Z75.1 Person awaiting admission to adequate facility elsewhere
CPT/HCPCS: 36415; 70450; 80053; 80061; 81001; 82550; 82553; 82607; 82746; 83036; 83540; 83550; 83605; 83735; 84100; 84145; 84439; 84443; 84481; 84484; 85025; 87040; 87426; 93005; 94762; 96372; 99285; J0696; J1200; J1630; J2060; J3490; J7030; J7042